=== PATIENT | female | born 1955 | race Two or more races ===

== ENCOUNTER 2021-12-12 12:55 | Inpatient (IN) | payer OTHER ==
[~2021-12-12] VITALS: Ht 172.7 cm; Wt 99.9 kg
[2021-12-12] MEDS ORDERED: SODIUM CHLORIDE 0.9% 1,000 ML IV ONE ×2 (13:30→17:45)
[2021-12-12 14:09] LABS: Basophils # (auto) 0 10 ^3/uL (0-0.2); Basophils % (auto) 0.5 % (0.0-2.0); Eosinophils # (auto) 0 10 ^3/uL (0-0.8); Eosinophils % (auto) 0.1 % (0.0-7.0); Hematocrit 32.4 % (36.0-46.0); Hemoglobin 11.5 g/dL (12.2-16.2); Lymphocytes # (auto) 0.8 10 ^3/uL (0.4-5.4); Lymphocytes % (auto) 9.8 % (10.0-50.0); Mean Corpuscular Hemoglobin 35.5 pg (28.0-32.0); Mean Corpuscular Hgb Conc. 35.5 g/dL (32.0-36.0); Monocytes # (auto) 0.7 10 ^3/uL (0-1.3); Monocytes % (auto) 8.9 % (0.0-12.0); Neutrophils # (auto) 6.5 10 ^3/uL (1.6-8.6); Neutrophils % (auto) 80.7 % (37.0-80.0); Red Blood Cells 3.24 10^6/uL (4.0-5.20); Red Cell Distribution Width 13.6 % (11.8-14.3)
[2021-12-12 14:22] LABS: INR 1.18 (0.9-1.15); Partial Thromboplastin Time 27.7 sec (23.6-33.0)
[2021-12-12] MEDS ORDERED: SODIUM CHL 3% 500 ML IV ONE (15:15)
[2021-12-12 15:54] LABS: BUN/Creatinine Ratio 30.1; Potassium 3.1 mmol/L (3.5-5.1)
[2021-12-12 15:55] LABS: Bilirubin, Total 2.5 mg/dL (0.2-1.0); Calcium 9.7 mg/dL (8.5-10.1); Magnesium 2.1 mg/dL (1.6-2.6)
[2021-12-12] MEDS ORDERED: POTASSIUM CHL 20 Meq TABLET PO ONE (17:30)
[2021-12-12] MEDS ORDERED: NITROGLYCERIN 0.4 MG SL TAB SL PRN (17:45)
[2021-12-12] MEDS ORDERED: PANTOPRAZOLE 40 MG/10 ML VIAL INJ IV ONE (17:45)
[2021-12-12] MEDS ORDERED: MAGNESIUM SULFATE 1GM/100ML 100 ML IV ONE (17:45)
[2021-12-12] MEDS ORDERED: POTASSIUM CHL 20MEQ/100ML 100 ML IV ONE (17:45)
[2021-12-12] MEDS ORDERED: THIAMINE 100mg/ml INJ (200mg/2ml VIAL) IV ONE (17:45)
[2021-12-12] MEDS ORDERED: MORPHINE SULFATE INJ 2 MG/ml SYRG IV PRN ×2 (17:45→21:30)
[2021-12-12] MEDS ORDERED: LORazepam 2MG/ML-1ML VIAL IV PRN (17:45)
[2021-12-12 18:46] LABS: Urine Bacteria FEW /hpf (None Seen); Urine Blood Negative /uL (Negative); Urine Specific Gravity 1.009 (1.001-1.035); Urine WBC 1 /hpf (0 - 5)
[2021-12-12] MEDS ORDERED: ONDANSETRON HCL 4 MG/2 ML VIAL IV PRN (21:30)
[2021-12-12] MEDS ORDERED: HYDROcodone-ACET 5/325MG TAB PO PRN (21:30)
[2021-12-12] MEDS ORDERED: hydrALAZINE HCL 20 MG/ML VL IV PRN (21:30)
[2021-12-12] MEDS ORDERED: DOCUSATE SOD 100 MG CAP PO PRN (21:30)
[2021-12-12] MEDS: SOD CHL 0.9%/ KCL 20MEQ 1,000 ML IV SCH (21:51)
[2021-12-12] MEDS: chlordiazePOXIDE HCL 25 MG CAP PO SCH (21:51)
[2021-12-12 22:30] LABS: BUN/Creatinine Ratio 31.4; Calcium 9.4 mg/dL (8.5-10.1); Magnesium 2.3 mg/dL (1.6-2.6); Potassium 3.1 mmol/L (3.5-5.1)
[2021-12-12 22:33] LABS: Bilirubin, Total 2.1 mg/dL (0.2-1.0); Total Protein 6.8 g/dL (6.4-8.2)
[2021-12-12 23:36] LABS: INR 1.16 (0.9-1.15); Partial Thromboplastin Time 27.3 sec (23.6-33.0)
[2021-12-13 01:37] LABS: Calcium 9.7 mg/dL (8.5-10.1); Potassium 3.3 mmol/L (3.5-5.1)
[2021-12-13 01:41] LABS: Alcohol, Urine < 3.0 mg/dL (0-10); Amphetamine Screen, Urine NEGATIVE (NEGATIVE); Barbiturate Scree,Urine NEGATIVE (NEGATIVE); Benzodiazephine Screen, Urine NEGATIVE (NEGATIVE); Cannabinoid Screen, Urine NEGATIVE (NEGATIVE); Cocaine Screen, Urine NEGATIVE (NEGATIVE); Opiate Scree,Urine NEGATIVE (NEGATIVE); Phencyclidine Screen, Urine NEGATIVE (NEGATIVE); Protein, Urine 16.8 mg/dL (0.0-11.9)
[2021-12-13 02:04] LABS: Urine Bacteria FEW /hpf (None Seen); Urine Blood Negative /uL (Negative); Urine Specific Gravity 1.011 (1.001-1.035); Urine WBC 6 /hpf (0 - 5)
[2021-12-13 05:30] LABS: Basophils # (auto) 0.1 10 ^3/uL (0-0.2); Eosinophils # (auto) 0 10 ^3/uL (0-0.8); Eosinophils % (auto) 0.2 % (0.0-7.0); Lymphocytes # (auto) 0.9 10 ^3/uL (0.4-5.4); Monocytes # (auto) 0.7 10 ^3/uL (0-1.3); Neutrophils # (auto) 4.7 10 ^3/uL (1.6-8.6); Neutrophils % (auto) 73.8 % (37.0-80.0); White Blood Cell 6.4 10^3/uL (4.4-10.8)
[2021-12-13] MEDS: CLINDAMYCIN 600MG IV 50 ML IV SCH ×2 (05:47→06:43)
[2021-12-13] MEDS: chlordiazePOXIDE HCL 25 MG CAP PO SCH ×2 (05:48→13:33)
[2021-12-13 05:49] LABS: INR 1.11 (0.9-1.15); Partial Thromboplastin Time 27.2 sec (23.6-33.0)
[2021-12-13 05:52] LABS: Potassium 3.2 mmol/L (3.5-5.1)
[2021-12-13 05:54] LABS: Hematocrit 29.2 % (36.0-46.0); Hemoglobin 10.4 g/dL (12.2-16.2); Lymphocytes % (auto) 14.4 % (10.0-50.0); Mean Corpuscular Hgb Conc. 35.7 g/dL (32.0-36.0); Mean Corpuscular Volume 100.8 fL (80.0-100.0); Monocytes % (auto) 10.6 % (0.0-12.0); Red Cell Distribution Width 13.8 % (11.8-14.3)
[2021-12-13 06:12] LABS: Albumin 2.6 g/dL (3.4-5.0); BUN/Creatinine Ratio 30.4; Bilirubin, Total 1.6 mg/dL (0.2-1.0); CRP High Sensitivity 3.85 mg/dL (< 0.3); Calcium 8.9 mg/dL (8.5-10.1); Magnesium 2.7 mg/dL (1.6-2.6); Phosphorus 1.7 mg/dL (2.5-4.90); Uric Acid 6.5 mg/dL (2.6-6.0)
[2021-12-13 06:17] LABS: Thyroid Stimulating Hormone 1.03 uIU/mL (0.358-3.74)
[2021-12-13] MEDS: NEUTRA-PHOS TABLET PO SCH ×2 (09:08→12:03)
[2021-12-13] MEDS: cefTRIAXone 1GM/50ML D5W 50 ML IV SCH (09:12)
[2021-12-13] MEDS ORDERED: MULTIPLE VITAMINS W/ MINERALS TAB PO SCH (10:00)
[2021-12-13] MEDS ORDERED: FOLIC ACID 1 MG TAB PO SCH (10:00)
[2021-12-13] MEDS: PANTOPRAZOLE 40 MG/10 ML VIAL INJ IV SCH (10:53)
[2021-12-13] MEDS: ENOXAPARIN SOD 40 MG/0.4 ML SYRINGE SC SCH (10:54)
[2021-12-13] MEDS: SOD CHL 0.9%/ KCL 20MEQ 1,000 ML IV SCH (11:01)
[2021-12-13 12:27] LABS: Hepatitis A Ab IgM Negative; Hepatitis B Core IgM Negative
[2021-12-13 12:28] LABS: Hepatitis C Antibody Negative (Negative)
[2021-12-13] MEDS ORDERED: POTASSIUM PHOSPHATE 44 MEQ in D5W 5% 250 ML IV ONE (12:30)
[2021-12-13] MEDS ORDERED: SODIUM CHLORIDE 0.9% 1,000 ML IV SCH (12:45)
[2021-12-13] MEDS ORDERED: FOLIC ACID 1 MG, MULTIPLE VITAMIN 10 ML, THIAMINE INJ 100 MG in SODIUM CHLORIDE 0.9% 1,... INJ SCH (15:45)
[2021-12-13 16:39] LABS: BUN/Creatinine Ratio 23.3; Calcium 9.4 mg/dL (8.5-10.1); Phosphorus 2.7 mg/dL (2.5-4.90); Potassium 3.5 mmol/L (3.5-5.1)
[2021-12-14] MEDS: chlordiazePOXIDE HCL 25 MG CAP PO SCH ×2 (01:49→13:30)
[2021-12-14 04:00] VITALS: BP 146/65
[2021-12-14 09:00] VITALS: BP 123/80
[2021-12-14 09:01] LABS: Hematocrit 33.4 % (36.0-46.0)
[2021-12-14 09:03] LABS: Hemoglobin 11.7 g/dL (12.2-16.2)
[2021-12-14 09:19] LABS: Albumin 3.1 g/dL (3.4-5.0); Calcium 9.6 mg/dL (8.5-10.1); Magnesium 2.4 mg/dL (1.6-2.6); Potassium 3.4 mmol/L (3.5-5.1)
[2021-12-14 09:22] LABS: BUN/Creatinine Ratio 27.1; Bilirubin, Total 1.3 mg/dL (0.2-1.0); Total Protein 7.3 g/dL (6.4-8.2)
[2021-12-14] MEDS ORDERED: POTASSIUM CHL 20 Meq TABLET PO ONE (10:00)
[2021-12-14] MEDS: cefTRIAXone 1GM/50ML D5W 50 ML IV SCH (10:00)
[2021-12-14] MEDS: PANTOPRAZOLE 40 MG/10 ML VIAL INJ IV SCH (10:00)
[2021-12-14] MEDS ORDERED: chlordiazePOXIDE HCL 25 MG CAP PO SCH (10:00)
[2021-12-14] MEDS ORDERED: FOLIC ACID 1 MG TAB PO ONE (10:45)
[2021-12-14] MEDS ORDERED: FAMOTIDINE 20 MG TAB PO ONE (10:45)
[2021-12-14] MEDS ORDERED: MULTIPLE VITAMIN TAB PO ONE (10:45)
[2021-12-14] MEDS ORDERED: THIAMINE HCL 100 MG TAB PO ONE (10:45)
[2021-12-14] MEDS: ENOXAPARIN SOD 40 MG/0.4 ML SYRINGE SC SCH (10:55)
[2021-12-14] MEDS ORDERED: FOLIC ACID 1 MG, MULTIPLE VITAMIN 10 ML, MAGNESIUM SULF SDV 50% 8 MEQ, THIAMINE INJ 100... INJ SCH ×5 (12:00)
[2021-12-14 13:00] VITALS: BP 112/76
[2021-12-15] MEDS ORDERED: chlordiazePOXIDE HCL 25 MG CAP PO SCH (07:00)
== END 2021-12-14 16:28 | disposition home or self-care (01) | DRG 641 ==
LOC: ER 12:55 → EDBD 12:55 → TELE 18:46 → TELE-EAST 12-14 03:45
PROVIDERS: ADMIT Hospitalist; ATTEND Internal Medicine
DX: E87.1 Hypo-osmolality and hyponatremia (principal); F10.239 Alcohol dependence with withdrawal, unspecified; I10 Essential (primary) hypertension; E87.6 Hypokalemia; E83.39 Other disorders of phosphorus metabolism; J44.9 Chronic obstructive pulmonary disease, unspecified; K29.00 Acute gastritis without bleeding; K70.9 Alcoholic liver disease, unspecified; K29.20 Alcoholic gastritis without bleeding; K70.10 Alcoholic hepatitis without ascites; Z20.822 Contact with and (suspected) exposure to COVID-19; K75.81 Nonalcoholic steatohepatitis (NASH); E78.5 Hyperlipidemia, unspecified; E66.01 Morbid (severe) obesity due to excess calories; D53.9 Nutritional anemia, unspecified; Z98.84 Bariatric surgery status; Z71.6 Tobacco abuse counseling
CPT/HCPCS: 36415; 70450; 71045; 74176; 76705; 80048; 80053; 80061; 80074; 80307; 81001; 82550; 82728; 82962; 83036; 83615; 83690; 83735; 83880; 83930; 83935; 84100; 84156; 84300; 84439; 84443; 84484; 84550; 85014; 85018; 85025; 85379; 85610; 85652; 85730; 86141; 87040; 87086; 93005; 96360; 96361; 99291; C9113; G0378; J0696; J3480; J3490; J7060